=== PATIENT | female | born 1960 | race Caucasian/White ===

== ENCOUNTER 2017-12-23 10:24 | Emergency (ER) | payer MEDICAID ==
[~2017-12-23] VITALS: Ht 162.6 cm; Wt 77.1 kg
[2017-12-23] MEDS ORDERED: cloNIDine HCL 0.1 MG TAB PO ONE (10:45)
[2017-12-23] MEDS ORDERED: METOPROLOL TARTRATE 25 MG TAB PO ONE (12:00)
== END 2017-12-23 12:34 | disposition home or self-care (01) ==
LOC: ER 10:24
DX: J45.909 Unspecified asthma, uncomplicated (principal); I10 Essential (primary) hypertension; F41.9 Anxiety disorder, unspecified; Z76.0 Encounter for issue of repeat prescription

== ENCOUNTER 2018-01-29 09:33 | Emergency (ER) | payer SELFPAY ==
[~2018-01-29] VITALS: Ht 162.6 cm; Wt 77.1 kg
[2018-01-29] MEDS ORDERED: cloNIDine HCL 0.1 MG TAB PO ONE ×2 (09:45→10:15)
[2018-01-29 10:20] VITALS: BP 168/94
== END 2018-01-29 10:25 | disposition home or self-care (01) ==
LOC: ER 09:40
DX: J45.909 Unspecified asthma, uncomplicated (principal); I10 Essential (primary) hypertension; F17.210 Nicotine dependence, cigarettes, uncomplicated; F15.10 Other stimulant abuse, uncomplicated; Z88.8 Allergy status to other drugs, medicaments and biological substances; Z76.0 Encounter for issue of repeat prescription

== ENCOUNTER 2018-02-16 15:05 | Emergency (ER) | payer MEDICAID, OTHER ==
[~2018-02-16] VITALS: Ht 162.6 cm; Wt 77.1 kg
[2018-02-16] MEDS ORDERED: IBUPROFEN 600 MG TAB PO ONE ×2 (15:16→15:30)
[2018-02-16 19:53] VITALS: BP 120/110
== END 2018-02-16 20:10 | disposition home or self-care (01) ==
LOC: ER 15:05
DX: S00.412A Abrasion of left ear, initial encounter (principal); J45.909 Unspecified asthma, uncomplicated; I10 Essential (primary) hypertension; F17.210 Nicotine dependence, cigarettes, uncomplicated; F15.90 Other stimulant use, unspecified, uncomplicated; W22.8XXA Striking against or struck by other objects, initial encounter; Y93.89 Activity, other specified; Y99.8 Other external cause status; Y92.89 Other specified places as the place of occurrence of the external cause

== ENCOUNTER 2018-03-02 07:49 | Emergency (ER) | payer MEDICAID ==
[~2018-03-02] VITALS: Ht 162.6 cm; Wt 77.1 kg
[2018-03-02] MEDS ORDERED: cloNIDine HCL 0.1 MG TAB PO ONE (08:15)
[2018-03-02 08:27] LABS: Basophils # (auto) 0.1 uL; Eosinophils # (auto) 0.7 uL; Mean Corpuscular Hemoglobin 33.3 pg (28.0-32.0); Monocytes # (auto) 0.5 uL
[2018-03-02 08:29] LABS: Basophils % (auto) 0.9 % (0.0-2.0); Eosinophils % (auto) 6.5 % (0.0-7.0); Hematocrit 44.5 % (36.0-46.0); Hemoglobin 14.9 g/dL (12.2-16.2); Mean Corpuscular Hgb Conc. 33.5 g/dL (32.0-36.0); Mean Corpuscular Volume 99.4 fL (80.0-100.0); Monocytes % (auto) 4.5 % (0.0-12.0); Neutrophils # (auto) 7.8 uL; Neutrophils % (auto) 70.1 % (37.0-80.0); Nucleated Red Blood Cells % 0.2 %; Red Blood Cells 4.47 10^6/uL (4.0-5.20); Red Cell Distribution Width 13.6 % (11.8-14.3); White Blood Cell 11.1 10^3/uL (4.4-10.8)
[2018-03-02 08:45] LABS: Alanine Aminotransferase 33 U/L (13-56); Albumin 3.8 g/dL (3.4-5.0); Anion Gap 10 (5-15); Aspartate Aminotransferase 20 U/L (15-37); BUN/Creatinine Ratio 23.1; Blood Urea Nitrogen 25 mg/dL (7-18); Calcium 8.7 mg/dL (8.5-10.1); Carbon Dioxide 24 mmol/L (21-32); Chloride 103 mmol/L (98-107); GFR Non-African American 55 mL/min; Glucose 125 mg/dL (74-106); Sodium 137 mmol/L (136-145)
[2018-03-02 08:47] VITALS: BP 211/119
[2018-03-02 08:47] LABS: GFR African American > 60 mL/min
[2018-03-02 08:50] LABS: Alkaline Phosphatase 105 U/L (45-117); Bilirubin, Total 0.2 mg/dL (0.2-1.0); Total Protein 7.3 g/dL (6.4-8.2)
[2018-03-02 09:19] LABS: Platelet Count (auto) 469 10^3/uL (140-450)
== END 2018-03-02 08:52 | disposition home or self-care (01) ==
LOC: ER 07:49
DX: I16.0 Hypertensive urgency (principal); I10 Essential (primary) hypertension; J45.909 Unspecified asthma, uncomplicated; F17.210 Nicotine dependence, cigarettes, uncomplicated; F12.10 Cannabis abuse, uncomplicated; F15.10 Other stimulant abuse, uncomplicated; Z76.0 Encounter for issue of repeat prescription; Z88.8 Allergy status to other drugs, medicaments and biological substances
CPT/HCPCS: 36415; 80053; 84484; 85025; 93005

== ENCOUNTER 2018-04-15 06:28 | Emergency (ER) | payer MEDICAID ==
[~2018-04-15] VITALS: Ht 162.6 cm; Wt 77.1 kg
[2018-04-15] MEDS ORDERED: cloNIDine HCL 0.1 MG TAB PO ONE (06:45)
[2018-04-15 07:10] LABS: Basophils # (auto) 0.1 uL; Basophils % (auto) 0.8 % (0.0-2.0); Eosinophils # (auto) 0.8 uL; Eosinophils % (auto) 7.3 % (0.0-7.0); Hematocrit 42.8 % (36.0-46.0); Hemoglobin 14.3 g/dL (12.2-16.2); Lymphocytes # (auto) 2.7 uL; Lymphocytes % (auto) 25.7 % (10.0-50.0); Mean Corpuscular Hemoglobin 33.3 pg (28.0-32.0); Mean Corpuscular Hgb Conc. 33.4 g/dL (32.0-36.0); Mean Corpuscular Volume 99.9 fL (80.0-100.0); Monocytes # (auto) 0.8 uL; Monocytes % (auto) 7.6 % (0.0-12.0); Neutrophils # (auto) 6.1 uL; Neutrophils % (auto) 58.6 % (37.0-80.0); Nucleated Red Blood Cells % 0.1 %; Platelet Count (auto) 414 10^3/uL (140-450); Red Blood Cells 4.28 10^6/uL (4.0-5.20); Red Cell Distribution Width 13.9 % (11.8-14.3); White Blood Cell 10.5 10^3/uL (4.4-10.8)
[2018-04-15 07:27] LABS: Albumin 4.3 g/dL (3.4-5.0); Anion Gap 7 (5-15); Aspartate Aminotransferase 26 U/L (15-37); BUN/Creatinine Ratio 19.1; Blood Urea Nitrogen 21 mg/dL (7-18); Calcium 9.1 mg/dL (8.5-10.1); Carbon Dioxide 27 mmol/L (21-32); Chloride 103 mmol/L (98-107); GFR African American 66 mL/min; GFR Non-African American 54 mL/min; Glucose 106 mg/dL (74-106); Sodium 137 mmol/L (136-145)
[2018-04-15 07:32] LABS: Alanine Aminotransferase 37 U/L (13-56); Alkaline Phosphatase 123 U/L (45-117); Bilirubin, Total 0.3 mg/dL (0.2-1.0); Total Protein 7.7 g/dL (6.4-8.2)
[2018-04-15] MEDS ORDERED: ACETAMINOPHEN 500 MG TAB PO ONE (10:15)
[2018-04-15 11:06] VITALS: BP 159/94
[2018-04-15] MEDS ORDERED: LORazepam 2MG/ML-1ML VIAL IV ONE (11:30)
[2018-04-15] MEDS ORDERED: LORazepam 2MG/ML-1ML VIAL ONE (11:32)
== END 2018-04-15 12:28 | disposition home or self-care (01) ==
LOC: ER 06:28
DX: I12.9 Hypertensive chronic kidney disease with stage 1 through stage 4 chronic kidney disease, or unspecified chronic kidney disease (principal); N18.3 Chronic kidney disease, stage 3 (moderate); J44.9 Chronic obstructive pulmonary disease, unspecified; F17.210 Nicotine dependence, cigarettes, uncomplicated; F12.90 Cannabis use, unspecified, uncomplicated; F15.90 Other stimulant use, unspecified, uncomplicated
CPT/HCPCS: 36415; 71046; 80053; 83735; 84443; 84484; 85025; 93005; 96374; 99284; J2060

== ENCOUNTER 2018-11-27 08:21 | Emergency (ER) | payer MEDICAID ==
[~2018-11-27] VITALS: Ht 162.6 cm; Wt 72.6 kg
[~2018-11-27 08:21] MED LIST: BUSP15TA60 PO; CLON0.1T PO; MIRT1TAB38 PO; NORT50CA57 PO; ZOLP10TA PO
[2018-11-27 08:31] VITALS: BP 187/92
[2018-11-27] MEDS ORDERED: KETOROLAC TROMETH 60MG/2ML VIAL IM ONE (08:45)
== END 2018-11-27 09:23 | disposition home or self-care (01) ==
LOC: ER 08:21
DX: S20.212A Contusion of left front wall of thorax, initial encounter (principal); N20.0 Calculus of kidney; F41.9 Anxiety disorder, unspecified; J44.9 Chronic obstructive pulmonary disease, unspecified; I10 Essential (primary) hypertension; F17.210 Nicotine dependence, cigarettes, uncomplicated; Z79.899 Other long term (current) drug therapy; Z91.040 Latex allergy status; Z88.8 Allergy status to other drugs, medicaments and biological substances; W01.0XXA Fall on same level from slipping, tripping and stumbling without subsequent striking against object, initial encounter; Y93.01 Activity, walking, marching and hiking; Y92.410 Unspecified street and highway as the place of occurrence of the external cause; Y99.8 Other external cause status
CPT/HCPCS: 71101; 96372; 99283; J1885

== ENCOUNTER 2018-12-07 08:02 | Inpatient (IN) | payer MEDICAID ==
[2018-12-07] VITALS (17 sets, daily range): BP systolic 109–161; BP diastolic 68–109
[~2018-12-07] VITALS: Ht 162.6 cm; Wt 74.8 kg
[2018-12-07] MEDS ORDERED: LABETALOL HCL 5 MG/ML ML 20ML VIAL IV ONE (09:30)
[2018-12-07 09:52] LABS: Basophils # (auto) 0 uL; Basophils % (auto) 0.5 % (0.0-2.0); Eosinophils # (auto) 0.2 uL; Hematocrit 43.2 % (36.0-46.0); Hemoglobin 14.6 g/dL (12.2-16.2); Lymphocytes % (auto) 23.4 % (10.0-50.0); Mean Corpuscular Hemoglobin 32.2 pg (28.0-32.0); Mean Corpuscular Hgb Conc. 33.8 g/dL (32.0-36.0); Mean Corpuscular Volume 95.3 fL (80.0-100.0); Monocytes # (auto) 0.5 uL; Monocytes % (auto) 5.9 % (0.0-12.0); Neutrophils # (auto) 5.9 uL; Neutrophils % (auto) 68.2 % (37.0-80.0); Platelet Count (auto) 369 10^3/uL (140-450); Red Blood Cells 4.53 10^6/uL (4.0-5.20); Red Cell Distribution Width 16.1 % (11.8-14.3); White Blood Cell 8.6 10^3/uL (4.4-10.8)
[2018-12-07 09:53] LABS: Urine Bacteria FEW /hpf (None Seen); Urine Blood Negative /uL (Negative); Urine Specific Gravity 1.005 (1.001-1.035); Urine WBC 1 /hpf (0 - 5)
[2018-12-07] MEDS ORDERED: KETOROLAC TROMETH 30 MG/ML 1ML VIAL IV ONE (10:00)
[2018-12-07] MEDS ORDERED: amLODIPine BESYLATE 5 MG TAB PO ONE (10:00)
[2018-12-07 10:21] LABS: Alanine Aminotransferase 61 U/L (13-56); Alkaline Phosphatase 162 U/L (45-117); Anion Gap 5 (5-15); Aspartate Aminotransferase 48 U/L (15-37); Bilirubin, Total 0.5 mg/dL (0.2-1.0); Blood Urea Nitrogen 11 mg/dL (7-18); Calcium 9.2 mg/dL (8.5-10.1); Carbon Dioxide 29 mmol/L (21-32); Chloride 104 mmol/L (98-107); GFR African American 73 mL/min; GFR Non-African American 60 mL/min; Glucose 102 mg/dL (74-106); Potassium 4.4 mmol/L (3.5-5.1); Sodium 138 mmol/L (136-145); Total Protein 8.3 g/dL (6.4-8.2)
[2018-12-07] MEDS ORDERED: NITROGLYCERIN 50MG/250ML 250 ML IV ONE (11:23)
[2018-12-07] MEDS ORDERED: hydrALAZINE HCL 20 MG/ML VL IV PRN (12:15)
[2018-12-07] MEDS ORDERED: MORPHINE SULF INJ 2 MG/ML SYRINGE 1ML IV PRN (12:15)
[2018-12-07] MEDS ORDERED: NITROGLYCERIN 0.4 MG SL TAB SL PRN (12:15)
[2018-12-07] MEDS ORDERED: ONDANSETRON HCL 4 MG/2 ML VIAL IV PRN (12:15)
[2018-12-07] MEDS ORDERED: HYDROcodone-ACET 5/325MG TAB PO PRN (12:15)
[2018-12-07] MEDS: METOPROLOL TARTRATE 25 MG TAB PO SCH ×2 (12:38→21:46)
[2018-12-07] MEDS: LISINOPRIL 10 MG TAB PO SCH (12:38)
[2018-12-07 12:53] LABS: Alcohol, Urine < 3.0 mg/dL (0-5); Amphetamine Screen, Urine POSITIVE (NEGATIVE); Barbiturate Scree,Urine NEGATIVE (NEGATIVE); Benzodiazephine Screen, Urine NEGATIVE (NEGATIVE); Cannabinoid Screen, Urine NEGATIVE (NEGATIVE); Cocaine Screen, Urine NEGATIVE (NEGATIVE); Opiate Scree,Urine NEGATIVE (NEGATIVE); Phencyclidine Screen, Urine NEGATIVE (NEGATIVE)
--- NOTE | 2018-12-07 13:20 | NUR ---
Admit to ICU from ER JOAO BONILLA admitted to ICU via rwaddell on monitor and storage bin tender. Patient able to transfer self from gurney to bed, alert and oriented x4, no distress noted, respirations even and unlabored on room air. Patient ambulated to toilet and voided clear/yellow urine and able to perform own ADL's. Patient connected to bedside monitor, vss and documented. Patient oriented to Leah Joe, primary RN, unit, and visiting hours. ICU pamphlet given to patient. Patient verbalized understanding. Fall and safety precautions in place.
[2018-12-07] MEDS: busPIRone HCL 10 MG TAB PO SCH ×2 (14:45→21:45)
[2018-12-07] MEDS: ACETAMINOPHEN 500 MG TAB PO PRN (14:46)
--- NOTE | 2018-12-07 14:46 | NUR ---
HEADACHE/GRAVITY PROSPECTING OPERATOR AT BEDSIDE PATIENT REPORTS TO THIS NURSE SHE IS HAVING A HEADACHE - PATIENT MEDICATED ORDERED BY PHYSICIAN. GRAVITY PROSPECTING OPERATOR AT BEDSIDE.
--- NOTE | 2018-12-07 15:07 | NUR ---
PAGED HOSPITALIST PATIENT REPORTS TO THIS NURSE "I AM HAVING A PANIC ATTACK, CAN I HAVE SOMETHING". PAGED HOSPITALIST ZIA MEDRANO TO REPORT, AWAITING RESPONSE.
[2018-12-07] MEDS: LORazepam 2MG/ML-1ML VIAL IV PRN (15:29)
--- NOTE | 2018-12-07 16:30 | NUR ---
FAMILY AT BEDSIDE PATIENT CONVERSING APPROPRIATELY, VSS AND DOCUMENTED.
[2018-12-07] MEDS: MIRTAZAPINE 30 MG TAB PO SCH (18:00)
--- NOTE | 2018-12-07 18:03 | NUR ---
REPORT CALLED TO RECEIVING RN REPORT CALLED IN TO ALEXEI - PATIENT WILL BE TRANSFERRED TO ROOM 275A. ALEXEI NOTIFIED THIS NURSE AFTER GIVING REPORT THAT "I STILL HAVE 4 PATIENTS AND NEED TO GIVE REPORT ON PATIENT THAT WILL BE TRANSFERRING TO ICU". ROOM BEING CLEANED - SOHAN CHARGE NURSE AWARE OF TRANSFER HOLD AT THIS TIME UNTIL SHIFT CHANGE. PATIENT AWARE.
--- NOTE | 2018-12-07 19:18 | NUR ---
END OF SHIFT NOTE PATIENT CARE ENDORSED TO PRECISION MACHINE OPERATOR RN, AWARE OF REPORT ALREADY GIVEN TO ALEXEI AND AWAITING TRANSFER TO ROOM 275A. PATIENT ALERT AND ORIENTED, X4, NO DISTRESS NOTED, RESPIRATIONS EVEN AND UNLABORED. FALL AND SAFETY PRECAUTIONS IN PLACE.
--- NOTE | 2018-12-07 19:50 | NUR ---
TRANSFERRED PT TRANSFERRED TO ROOM 275A VIA CHAIR CONNECTED TO TELEMETRY BOX WITH ALL PERSONAL BELONGINGS. CARE TRANSFERRED TO MARYAM GRAHAM
--- NOTE | 2018-12-07 19:51 | NUR ---
Opening Shift Note Assumed care of patient, awake and alert, transferred from ICU. No S/S of distress/SOB or pain. Bed locked in lowest position, side rails upx2, call light within reach. Instructed on POC and to call for assist PRN, will continue to monitor for changes Q1hr and PRN.
[2018-12-07] MEDS ORDERED: NORTRIPTYLINE HCL 25 MG CAP PO PRN (22:00)
[2018-12-08] MEDS: ACETAMINOPHEN 500 MG TAB PO PRN (03:59)
[2018-12-08 05:20] LABS: Basophils # (auto) 0.1 uL; Basophils % (auto) 0.8 % (0.0-2.0); Eosinophils # (auto) 0.3 uL; Eosinophils % (auto) 4.8 % (0.0-7.0); Hematocrit 40.2 % (36.0-46.0); Hemoglobin 13.6 g/dL (12.2-16.2); Lymphocytes # (auto) 1.9 uL; Lymphocytes % (auto) 27.9 % (10.0-50.0); Mean Corpuscular Hemoglobin 32.6 pg (28.0-32.0); Mean Corpuscular Hgb Conc. 33.9 g/dL (32.0-36.0); Mean Corpuscular Volume 96.1 fL (80.0-100.0); Monocytes # (auto) 0.5 uL; Monocytes % (auto) 7.9 % (0.0-12.0); Neutrophils % (auto) 58.6 % (37.0-80.0); Nucleated Red Blood Cells % 0.1 %; Platelet Count (auto) 314 10^3/uL (140-450); Red Blood Cells 4.18 10^6/uL (4.0-5.20); White Blood Cell 6.9 10^3/uL (4.4-10.8)
[2018-12-08 05:30] VITALS: BP 112/62
[2018-12-08] MEDS: busPIRone HCL 10 MG TAB PO SCH ×3 (05:33→21:03)
[2018-12-08 05:37] LABS: Calcium 8.8 mg/dL (8.5-10.1); Potassium 3.9 mmol/L (3.5-5.1)
[2018-12-08 05:39] LABS: BUN/Creatinine Ratio 15.4
[2018-12-08] MEDS: MORPHINE SULF INJ 2 MG/ML SYRINGE 1ML IV PRN ×3 (08:04→18:57)
[2018-12-08] MEDS: LISINOPRIL 10 MG TAB PO SCH (08:58)
[2018-12-08] MEDS: METOPROLOL TARTRATE 25 MG TAB PO SCH ×2 (08:58→21:08)
[2018-12-08 09:10] VITALS: BP 136/74
[2018-12-08] MEDS ORDERED: NICOTINE 21MG/24 HR TOPICAL PATCH TD ONE (12:15)
[2018-12-08 12:47] VITALS: BP 140/69
--- NOTE | 2018-12-08 13:07 | NUR ---
CALLED DR. KNAPP MADE AWARE PT IS STILL COMPLAINING THAT PAIN MEDICATION IS NOT WORKING FOR HER, PER DR. KNAPP SHE WILL COME SEE THE PT.
[2018-12-08] MEDS: LORazepam 2MG/ML-1ML VIAL IV PRN (13:19)
--- NOTE | 2018-12-08 14:15 | NUR ---
DR. KNAPP MADE AWARE PT IS ASKING FOR MEDICATION FOR MIGRAINE, NO ORDER RECEIVED.
[2018-12-08] MEDS ORDERED: IPRATROPIUM BROM 0.5 MG/2.5ML INH SOL NEB PRN (14:45)
[2018-12-08] MEDS ORDERED: ALBUTEROL SULF 2.5 MG/0.5ML(0.5%) NEB SOLN NEB PRN (14:45)
[2018-12-08] MEDS ORDERED: PANTOPRAZOLE 40 MG TAB PO ONE (14:45)
[2018-12-08] MEDS: SODIUM CHLORIDE 0.9% 1,000 ML IV SCH (15:43)
[2018-12-08 16:56] VITALS: BP 119/72
[2018-12-08] MEDS: MIRTAZAPINE 30 MG TAB PO SCH (17:28)
--- NOTE | 2018-12-08 19:30 | NUR ---
OPENING NOTE REPORT RECEIVED FROM DAY SHIFT RN PATIENT IS A/OX4 RESTING IN BED, ABLE TO ANSWER ALL QUESTIONS APPROPRIATELY. PATIENT IS REQUESTING FOR A SLEEPING PILL TONIGHT. PATIENT STATES SHE TAKES AMBIEN AT HOME. WILL CALL HOSPITALIST FOR ORDER SINCE THERE IS NO CURRENT ORDER FOR SLEEPING MEDICATION. POC DISCUSSED WITH PATIENT AND ALL QUESTIONS ANSWERED. WILL MONITOR Q1H PRN THROUGHOUT SHIFT. CALL LIGHT WITHIN REACH.
--- NOTE | 2018-12-08 19:50 | NUR ---
PAGED HOSPITALIST RE:PATIENT REQUESTING SLEEPING AID FOR TONIGHT WILL WAIT FOR CALL BACK
--- NOTE | 2018-12-08 19:55 | NUR ---
RECEIVED CALL BACK FROM HOSPITALIST CHARISSE RECEIVED ORDER FOR AMBIEN 5MG PO QHS ORDER READ BACK AND VERIFIED
[2018-12-08] MEDS ORDERED: ZOLPIDEM TARTRATE 5 MG TAB PO PRN (20:00)
[2018-12-08 21:49] VITALS: BP 150/85
[2018-12-09 00:41] VITALS: BP 150/85
--- NOTE | 2018-12-09 05:05 | NUR ---
IV removal TO RIGHT AC. PATIENT C/O PAIN, IV HALF WAY OUT. IV DC'd with clean sterile technique, catheter fully intact. Pressure dressing applied to site. Patient tolerated well.
[2018-12-09 05:39] VITALS: BP 136/86
[2018-12-09] MEDS: busPIRone HCL 10 MG TAB PO SCH ×2 (05:57→14:00)
[2018-12-09 06:23] LABS: Albumin 3.2 g/dL (3.4-5.0); BUN/Creatinine Ratio 21.4; Calcium 8.5 mg/dL (8.5-10.1); Magnesium 2.2 mg/dL (1.6-2.6); Potassium 4.3 mmol/L (3.5-5.1)
[2018-12-09 06:26] LABS: Bilirubin, Total 0.3 mg/dL (0.2-1.0); Total Protein 6.5 g/dL (6.4-8.2)
[2018-12-09 06:32] LABS: Cholesterol 168 mg/dL (< 200); HDL Cholesterol 49 mg/dL (40-59); LDL Cholesterol 111 mg/dL (< 100); Triglycerides 107 mg/dL (< 150)
--- NOTE | 2018-12-09 06:56 | NUR ---
CLOSING NOTE PATIENT IS SLEEPING. NO S/S OF DISTRESS NOTED. CALL LIGHT WITHIN REACH WILL ENDORSE CARE TO AM SHIFT RN
[2018-12-09] MEDS: SODIUM CHLORIDE 0.9% 1,000 ML IV SCH (07:25)
--- NOTE | 2018-12-09 07:36 | NUR ---
Respiratory note: PT IS AWAKE, AND ALERT. NO RESPIRATORY DISTRESS NOTED. SPO2 95% ON RA, HR 54, RR 16, BS CLEAR T/O. PRN MEDNEB TX NOT INDICATED. PT INFORMED TO PUSH CALL BUTTON IF INCREASED WOB, SOB, OR WHEEZING OCCURS.
--- NOTE | 2018-12-09 08:07 | NUR ---
Patient requested to have her Nicotine patch be applied now. Explained to patient it's due at 1000 am. Patient cannot smoke off unit with Nicotine patch on.
[2018-12-09] MEDS: LORazepam 2MG/ML-1ML VIAL IV PRN (08:19)
--- NOTE | 2018-12-09 08:19 | NUR ---
Patient stated she's anxious, asked for anti-anxiety medication. Ativan Inj given for anxiety.
[2018-12-09 09:00] VITALS: BP 133/76
[2018-12-09] MEDS ORDERED: PANTOPRAZOLE 40 MG TAB PO SCH (10:00)
[2018-12-09] MEDS ORDERED: NICOTINE 21MG/24 HR TOPICAL PATCH TD SCH (10:00)
[2018-12-09] MEDS: LISINOPRIL 10 MG TAB PO SCH (10:13)
[2018-12-09] MEDS: METOPROLOL TARTRATE 25 MG TAB PO SCH (10:13)
--- NOTE | 2018-12-09 11:18 | NUR ---
Dr. Xavier came over. to put in new orders, will put in discharge orders if x ray comes out negative.
--- NOTE | 2018-12-09 12:00 | NUR ---
Patient off unit, at Radiology at this time.
[2018-12-09 12:08] VITALS: BP 133/76
--- NOTE | 2018-12-09 13:00 | NUR ---
Patient back to room from Radiology. Patient showed me her routine medications she takes at home; Buspirone 15 mg daily, Metoprolol 100 mg daily, Ambien QHS PRN, Protonix daily, Atorvastatin 20 mg. Patient said she does not take Clonidine anymore. Dr. Xavier made aware the Med Rec has been finalized and cannot be edited anymore when the discharge order is put in.
--- NOTE | 2018-12-09 13:35 | NUR ---
Discharge instructions given as ordered. Encourage to follow up with PMD as instructed. All questions and concerns addressed. Patient verbalized understanding. Medication reconciliation form completed and copy given to patient. IV removed with catheter intact, pressure dressing applied. Telemetry unit returned to ICU. Patient taken to vehicle via wheelchair with all personal belongings, accompanied by staff. Patient to drive her own car parked at the ER parking area. No complaints of pain. Patient awake, alert, oriented x4. No distress noted at time of departure.
== END 2018-12-09 13:35 | disposition home or self-care (01) | DRG 199 ==
LOC: ER 08:02 → TELE 08:03 → ICU WEST 14:08 → TELE-WESTW 20:04
PROVIDERS: ADMIT Nurse Practitioner Acute Care; ATTEND Internal Medicine
DX: I16.9 Hypertensive crisis, unspecified (principal); N17.0 Acute kidney failure with tubular necrosis; E78.5 Hyperlipidemia, unspecified; F12.10 Cannabis abuse, uncomplicated; G89.4 Chronic pain syndrome; F31.9 Bipolar disorder, unspecified; I10 Essential (primary) hypertension; F15.10 Other stimulant abuse, uncomplicated; J44.9 Chronic obstructive pulmonary disease, unspecified; W01.0XXA Fall on same level from slipping, tripping and stumbling without subsequent striking against object, initial encounter; Z87.11 Personal history of peptic ulcer disease; Z91.040 Latex allergy status; Z88.8 Allergy status to other drugs, medicaments and biological substances; Z72.0 Tobacco use; Z71.6 Tobacco abuse counseling; Y92.89 Other specified places as the place of occurrence of the external cause
CPT/HCPCS: 36415; 71101; 80048; 80053; 80061; 80307; 81001; 83735; 84484; 85025; 86141; 87081; 93005; 93306; 96374; 96375; 99291; G0378; J1885

== ENCOUNTER 2021-10-18 14:04 | Emergency (ER) | payer MEDICAID ==
[~2021-10-18] VITALS: Ht 160 cm; Wt 68.1 kg
[2021-10-18] MEDS ORDERED: methylPREDNISolone SOD SUCC 125 MG/2 ML VL IV ONE (14:30)
[2021-10-18] MEDS ORDERED: MORPHINE SULFATE 4 MG/ML SYR/VIAL IV ONE (14:30)
[2021-10-18] MEDS ORDERED: AZITHROMYCIN 500MG/ 250ML 250 ML IV ONE (14:30)
[2021-10-18 16:10] LABS: Albumin 4.2 g/dL (3.4-5.0); Calcium 9.7 mg/dL (8.5-10.1); Potassium 4.5 mmol/L (3.5-5.1)
[2021-10-18 16:14] LABS: BUN/Creatinine Ratio 24.8; Bilirubin, Total 0.6 mg/dL (0.2-1.0); Total Protein 8.1 g/dL (6.4-8.2)
[2021-10-18 16:40] LABS: Basophils # (auto) 0 10 ^3/uL (0-0.2); Basophils % (auto) 0.2 % (0.0-2.0); Eosinophils # (auto) 0 10 ^3/uL (0-0.8); Eosinophils % (auto) 0.3 % (0.0-7.0); Hematocrit 45.1 % (36.0-46.0); Hemoglobin 14.7 g/dL (12.2-16.2); Lymphocytes # (auto) 0.9 10 ^3/uL (0.4-5.4); Lymphocytes % (auto) 11.7 % (10.0-50.0); Mean Corpuscular Hemoglobin 30.4 pg (28.0-32.0); Mean Corpuscular Hgb Conc. 32.6 g/dL (32.0-36.0); Mean Corpuscular Volume 93.5 fL (80.0-100.0); Monocytes # (auto) 0.5 10 ^3/uL (0-1.3); Monocytes % (auto) 6.5 % (0.0-12.0); Neutrophils # (auto) 6.3 10 ^3/uL (1.6-8.6); Neutrophils % (auto) 81.3 % (37.0-80.0); Nucleated Red Blood Cells % 0.1 %; Red Blood Cells 4.82 10^6/uL (4.0-5.20); Red Cell Distribution Width 13.5 % (11.8-14.3); White Blood Cell 7.7 10^3/uL (4.4-10.8)
[2021-10-18] MEDS ORDERED: AZIT500T PO (16:50)
[2021-10-18] MEDS ORDERED: ONDA-144 PO (16:50)
[2021-10-18] MEDS ORDERED: methylPREDNISolone SOD SUCC 125 MG/2 ML VL IM ONE (18:00)
[2021-10-18] MEDS ORDERED: AZITHROMYCIN 250 MG TAB PO ONE (18:00)
[2021-10-18] MEDS ORDERED: HYDROcodone-ACET 5/325MG TAB PO ONE (18:00)
[2021-10-18 18:14] VITALS: BP 142/80
== END 2021-10-18 18:24 | disposition home or self-care (01) ==
LOC: EDBD 14:04 → ER 14:04
DX: U07.1 COVID-19 (principal); J44.9 Chronic obstructive pulmonary disease, unspecified; I10 Essential (primary) hypertension; F17.210 Nicotine dependence, cigarettes, uncomplicated
CPT/HCPCS: 36415; 71045; 80053; 85025; 85379; 87426; 93005; 96372; 99285; J2930

== ENCOUNTER 2023-10-15 13:20 | Emergency (ER) | payer MEDICAID ==
[~2023-10-15] VITALS: Ht 162.6 cm; Wt 68.0 kg
[~2023-10-15 13:20] MED LIST changes: +AZIT500T PO; +ONDA-144 PO
[2023-10-15 14:32] VITALS: BP 159/78; PULSE 92; RESP 20; TEMP 99.8; O2SAT 100
[2023-10-15] MEDS: TETANUS-DIPTH-ACEL PERTUSSIS 0.5ML SYR Tdap IM ONE (14:58)
[2023-10-15] MEDS ORDERED: AMOX500T86 PO (15:34)
[2023-10-15] MEDS ORDERED: NAPR-746 PO (15:34)
== END 2023-10-15 15:37 | disposition home or self-care (01) ==
LOC: ER 13:20
DX: S51.852A Open bite of left forearm, initial encounter (principal); F41.9 Anxiety disorder, unspecified; J44.9 Chronic obstructive pulmonary disease, unspecified; I10 Essential (primary) hypertension; F17.210 Nicotine dependence, cigarettes, uncomplicated; F12.10 Cannabis abuse, uncomplicated; Z91.040 Latex allergy status; W55.01XA Bitten by cat, initial encounter; Y93.89 Activity, other specified; Y92.098 Other place in other non-institutional residence as the place of occurrence of the external cause; Y99.8 Other external cause status
CPT/HCPCS: 90471; 90715

== ENCOUNTER 2023-12-17 12:41 | Emergency (ER) | payer MEDICAID ==
[~2023-12-17] VITALS: Ht 162.6 cm; Wt 63.6 kg
[~2023-12-17 12:41] MED LIST changes: +AMOX500T86 PO; +NAPR-746 PO
[2023-12-17] MEDS ORDERED: CEPH500C PO (13:32)
[2023-12-17 13:59] VITALS: BP 159/99; PULSE 14; RESP 14; TEMP 98.1; O2SAT 95
== END 2023-12-17 14:01 | disposition home or self-care (01) ==
LOC: ER 12:41
DX: S41.112D Laceration without foreign body of left upper arm, subsequent encounter (principal); X58.XXXD Exposure to other specified factors, subsequent encounter; I10 Essential (primary) hypertension; F41.9 Anxiety disorder, unspecified; J44.89 Other specified chronic obstructive pulmonary disease; F17.210 Nicotine dependence, cigarettes, uncomplicated; Z79.899 Other long term (current) drug therapy; Z88.8 Allergy status to other drugs, medicaments and biological substances

== ENCOUNTER 2023-12-26 14:41 | Emergency (ER) | payer MEDICAID ==
[~2023-12-26] VITALS: Ht 162.6 cm; Wt 66.3 kg
[~2023-12-26 14:41] MED LIST changes: +CEPH500C PO
--- NOTE | 2023-12-26 15:58 | ED.PDOC ---
History of Present Illness HPI Comments A 63 YEAR OLD FEMALE PRESENTS TO THE ED WITH COMPLAINT OF SUTURE REMOVAL OF LEFT ARM. PATIENT STATES SHE HAD SUTURES PLACED ON HER LEFT UPPER ARM ABOUT 2 WEEKS AGO AND IS HERE IN THE ED TODAY TO HAVE THEM REMOVED. PATIENT ALSO NOTES HER BLOOD PRESSURE IS CURRENTLY HIGH DUE TO NOT TAKING HER BLOOD PRESSURE MEDICATION TODAY. PATIENT DENIES FEVER, CHILLS, SHORTNESS OF BREATH, CHEST PAIN, ABDOMINAL PAIN, NAUSEA, VOMITING, HEADACHE, OR OTHER COMPLAINTS. NO OTHER SYMPTOMS OR MODIFYING FACTORS AT THIS TIME. PATIENT IS ALERT, ORIENTED X 4, AND HAS STEADY GAIT. Chief Complaint: Suture Removal Time Seen by MD: 14:43 Primary Care Provider: NONE Reviewed Notes: Nurses Notes, Medications, Allergies Allergies: Coded Allergies: Latex (Verified Allergy, Mild, Rash, 07/12/18) Valproic Acid (Verified Allergy, Unknown, 12/23/17) Home Meds Active Scripts Cephalexin Monohydrate (Cephalexin) 500 Mg Cap, 1 CAP PO QID for 5 Days, #20 CAP 0 Refills Prov:CEM KEEN NP 12/17/23 Naproxen (Naproxen) 500 Mg Tab, 500 MG PO BID, #30 TAB Prov:NELLY LANE 10/15/23 Amoxicillin & Pot Clavulanate (Augmentin) 500 Mg Tab, 1 TAB PO BID, #20 TAB Prov:NELLY LANE 10/15/23 Azithromycin (Zithromax) 500 Mg Tab, 1 TAB PO DAILY, #5 TAB Prov:NORRIS CRAFT MD 10/18/21 Ondansetron (Zofran) 4 Mg Tab, 1 TAB PO Q6HR, #20 TAB Prov:NORRIS CRAFT MD 10/18/21 Reported Medications Clonidine Hydrochloride (Clonidine Hcl) 0.1 Mg Tab, 1 TAB PO BID, #30 TAB 2 Refills 07/12/18 Zolpidem Tartrate (Ambien) 10 Mg Tab, 1 TAB PO QPM, #30 TAB 5 Refills 07/12/18 Mirtazapine (Mirtazapine Oral Disintegrating Tablet) 15 Mg Tab, 1 TAB PO QPM, #30 TAB 3 Refills 07/12/18 Buspirone Hcl (Buspirone Hcl) 15 Mg Tab, 1 TAB PO TID, #60 TAB 07/12/18 Nortriptyline HCl (Nortriptyline Hydrochlori) 50 Mg Cap, 50 MG PO QHSP, CAP 07/12/18 Information Source: Patient Mode of Arrival: Ambulatory Severity: None Timing: Weeks Duration: Since onset Prehospital treatment: None Medication Refill: For: Other (SUTURE REMOVAL) Past Medical History PAST MEDICAL HISTORY: Anxiety, Asthma, COPD, HTN, Kidney Stones Surgical History: Denies all surgeries AUTOMOTIVE DETAILER History: No Pertinent AUTOMOTIVE DETAILER History Family History Family History: Reviewed,noncontributory to illness Social History Smoker: Cigarettes Alcohol: Denies ETOH Use Drugs: Marijuana Lives In: Home Constitutional: denies: chills, diaphoresis, fatigue, fever, malaise, sweats, weakness, others EENTM: denies: blurred vision, double vision, ear bleeding, ear discharge, ear drainage, ear pain, ear ringing, eye pain, eye redness, hearing loss, mouth pain, mouth swelling, nasal discharge, nose bleeding, nose congestion, nose pain, photophobia, tearing, throat pain, throat swelling, voice changes, others Respiratory: denies: cough, hemoptysis, orthopnea, SOB at rest, shortness of breath, SOB with excertion, stridor, wheezing, others Cardiovascular: denies: chest pain, dizzy spells, diaphoresis, Dyspnea on exertion, edema, irregular heart beat, left arm pain, lightheadedness, palpitations, PND, syncope, others Gastrointestinal: denies: abdomen distended, abdominal pain, blood streaked bowels, constipated, diarrhea, dysphagia, difficulty swallowing, hematemesis, melena, nausea, poor appetite, poor fluid intake, rectal bleeding, rectal pain, vomiting, others Genitourinary: denies: abnormal vagina bleeding, burning, dyspareunia, dysuria, flank pain, frequency, hematuria, incontinence, pain, , vagina discharge, urgency, others Neurological: denies: dizziness, fainting, headache, left sided numbness, left sided weakness, numbness, paresthesia, pre-existing deficit, right sided numbness, right sided weakness, seizure, speech problems, tingling, tremors, wea kness, others Musculoskeletal: denies: back pain, gout, joint pain, joint swelling, muscle pain, muscle stiffness, neck pain, others Integumetry: reports: laceration (LEFT INNER ARM REPAIRED. ); denies: bruises, change in color, change in hair/nails, dryness, lesions, lumps, rash, wounds, others Allergic/Immunocompromised: denies: Difficulty Healing, Frequent Infections, Hives, Itching, others Hematologic/Lymphatic: denies: anemia, blood clots, easy bleeding, easy bruising, swollen glands, others Endocrine: denies: excessive hunger, excessive sweating, excessive thirst, excessive urination, flushing, intolerance to cold, intolerance to heat, unexplained weight gain, unexplained weight loss, others Psychiatric: denies: anxiety, bipolar disorder, depression, hopeless, panic disorder, schizophrenia, sleepless, suicidal, others All Other Systems: Reviewed and Negative Physical Exam General Appearance: No Apparent Distress, Normal HEENT: Normal ENT Inspection, PERRL/EOMI, Pharynx Normal, TMs Normal Neck: Full Range of Motion, Non-Tender, Normal, Normal Inspection Respiratory: Chest Non-Tender, Lungs Clear, No Accessory Muscle Use, No Respiratory Distress, Normal Breath Sounds Cardiovascular: No Edema, No JVD, No Murmur, No Gallop, Normal Peripheral Pulses, Regular Rate/Rhythm Breast Exam: Deferred Gastrointestinal: No Organomegaly, Non Tender, No Pulsatile Mass, Normal Bowel Sounds, Soft Genitalia: Deferred Pelvic: Deferred Rectal: Deferred Extremities: No calf tenderness, Normal capillary refill, Normal inspection, Normal range of motion, Non-tender, No pedal edema Musculoskeletal : Apperance: Normal Neurologic: Alert, water resource consultant II-XII nml as Tested, No Motor Deficits, Normal Affect, Normal Mood, No Sensory Deficits Cerebellar Function: Normal Reflexes: Normal Skin: Dry, Lacerations (LEFT INNER ARM LACERATION REPAIRED, HEALED, NO REDNESS AND SWELLING, NO INFECTION SIGNS. ), Normal Color, Warm Peripheral Pulses: 2+ carotid (R), 2+ carotid (L) Lymphatic: No Adenopathy Was a procedure done? Was a procedure done?: No Differential Dx Considerations may include: SUTURE REMOVAL, WOUND RECHECK, WOUND INFECTION X-Ray, Labs, Meds, VS Vital Signs Date Time Temp Pulse Resp B/P (MAP) Pulse Ox O2 Delivery O2 Flow Rate FiO2 12/26/23 16:53 157/75 12/26/23 16:14 195/97 12/26/23 16:03 87 16 96 Room Air 12/26/23 16:03 98.5 87 18 195/97 (129) 96 98.5 12/26/23 15:30 98.5 86 16 181/96 (124) 96 Current Medications Medications (Trade) Dose Ordered Sig/Christy Route Start Time Stop Time Status Last Admin Clonidine HCl (Catapres Tablet) 0.2 mg ONCE ONCE PO 12/26/23 16:15 12/26/23 16:16 DC 12/26/23 16:14 X-Ray, Labs, Meds, VS Comment TREATMENT: CLONIDINE 0.2 MG P.O. Time of 1ST Reevaluation: 17:00 Reevaluation 1ST: Improved Patient Education/Counseling: Diagnosis, Treatment, Need For Follow Up Family Education/Counseling: Diagnosis, Treatment, Need For Follow Up Medical Screening: No EMC Exist At This Time Departure 1 Departure Time of Disposition: 17:00 Impression: Primary Impression: Encounter for removal of sutures Additional Impressions: Hypertension Qualified Codes: I10 - Essential (primary) hypertension Noncompliance with medication regimen Disposition: HOME / SELF CARE / HOMELESS Condition: Stable Additional Instructions: FOLLOW-UP WITH PCP IN 1 TO 2 DAYS. RETURN TO ED FOR ANY NEW OR WORSENING SYMPTOMS. Discharged With: Self Critical Care Note Critical Care Time?: No Stability Stability form required: No I personally scribed for NELLY LANE ([email or web address]) on 12/26/23 at 15:58. E lectronically submitted by Fer Simpson ([email or web address]). I personally scribed for NELLY LANE ([email or web address]) on 12/26/23 at 16:05. El ectronically submitted by Fer Simpson ([email or web address]). NELLY LANE Dec 26, 2023 15:58
[2023-12-26 16:03] VITALS: BP 195/97; PULSE 87; RESP 16; TEMP 98.5; O2SAT 96
[2023-12-26] MEDS: cloNIDine HCL 0.1 MG TAB PO ONE (16:14)
== END 2023-12-26 17:00 | disposition home or self-care (01) ==
LOC: ER 14:41
DX: S41.112D Laceration without foreign body of left upper arm, subsequent encounter (principal); F17.210 Nicotine dependence, cigarettes, uncomplicated; F41.9 Anxiety disorder, unspecified; J44.89 Other specified chronic obstructive pulmonary disease; F12.10 Cannabis abuse, uncomplicated; I10 Essential (primary) hypertension; Z87.442 Personal history of urinary calculi; Z79.899 Other long term (current) drug therapy; Z91.148 Patient's other noncompliance with medication regimen for other reason; X58.XXXD Exposure to other specified factors, subsequent encounter